=== PATIENT | female | born 1955 | race Caucasian/White ===

== ENCOUNTER 2020-09-26 15:47 | Emergency (ER) | payer SELFPAY ==
[~2020-09-26] VITALS: Ht 162.6 cm; Wt 85.7 kg
[~2020-09-26 15:47] MED LIST: ACHYD1T PO; BENA10TA PO; DCS100C PO; ESTR1TAB27 PO; IBUP800T26 PO; INDO25CA PO; INSASP10V SC; INSU100C7 SQ; INSU100V6; LOVA20TA2 PO; METF-380 PO; OMEP20CA6 PO; PARO20TA57 PO; VIT1TABL57 PO
--- NOTE | 2020-09-26 16:28 | ED Back Pain ---
General Chief Complaint: Back Problems Stated Complaint: DX W/ KIDNEY INFECTION/R FLANK PAIN Source of Information: Patient Exam Limitations: No Limitations History of Present Illness Date Seen by Provider: Sep 26, 2020 Time Seen by Provider: 16:28 Initial Comments To ER with reports of right flank pain. This has been intermittent over the past week. She was seen at [facility] and believes that she had a possible kidney infection. She states that she was not given any antibiotics but she was given nausea medication. She drank lots of water and the pain subsided. This morning the pain returned. Location: Other Timing/Duration: 2-3 Days, Intermittent Severity: Moderate Associated Symptoms: denies symptoms Allergies and Home Medications Allergies Coded Allergies: No Known Drug Allergies (Verified , 07/09/09) Home Medications Benazepril Hcl 10 Mg Tablet, 10 MG PO DAILY, (Reported) Estradiol 1 Mg Tablet, 1 MG PO DAILY Prescribed by: JANETH DAVID on 07/22/13 0735 Ibuprofen 800 Mg Tablet, 800 MG PO Q6H PRN for PAIN Use for cramping and pain Prescribed by: JANETH DAVID on 07/22/13 0735 Insulin Aspart 10 Unit/0.1 Ml Vial, 10 UNIT SC AC, (Reported) Lovastatin 20 Mg Tablet, 20 MG PO HS, (Reported) Metformin Hcl 1,000 Mg Tablet, 1,000 MG PO BID, (Reported) DAILY @ 7AM AND 5 PM Paroxetine Hcl 20 Mg Tablet, 20 MG PO DAILY, (Reported) Patient Home Medication List Home Medication List Reviewed: Yes Review of Systems Constitutional: see HPI; No chills, No fever EENTM: see HPI Respiratory: no symptoms reported Cardiovascular: no symptoms reported Genitourinary: no symptoms reported Musculoskeletal: no symptoms reported Skin: no symptoms reported Psychiatric/Neurological: No Symptoms Reported Past Vopxrnu-Qpxkpt-Uycyka Hx Immunizations Up To Date Tetanus Booster (TDap): More than 5yrs Date of Pneumonia Vaccine: Jun 28, 2012 Date of Influenza Vaccine: Apr 25, 2013 Past Medical History Reproductive Disorders: No Female Reproductive Disorders: Denies Sexually Transmitted Disease: No HIV/AIDS: No Diverticulosis Arthritis Diabetes, Insulin dep Hearing Impairment: Denies Adverse Reaction/Blood Tranf: No Family Medical History Family history: Alzheimer's disease 03 MOTHER, Onset:60 years & older Family history: Arthritis 03 FATHER, Onset:Unknown 03 MOTHER, Onset:Unknown Family history: Diabetes mellitus 03 MOTHER 09 BROTHER 09 SISTER Family history: Hypertension 03 MOTHER Prostate cancer 09 BROTHER No Family History of: Abdominal aortic aneurysm Overton's disease Alcoholism Aphasia Cancer Cancer of colon Cataract Chest pain Congenital heart disease Congestive heart failure Cystic fibrosis Dementia Dysphagia Family history: Allergy Family history: Asthma Family history: Breast disease Family history: Cardiovascular disease Family history: Coronary thrombosis Family history: Gastrointestinal disease Family history: Glaucoma Family history: Osteoporosis Family history: Thyroid disorder Headache Hearing loss Heart disease Hereditary disease History of - disorder History of - respiratory disease History of drug abuse Human immunodeficiency virus (HIV) seropositivity Hypercholesterolemia Infertile Kidney disease Malignant neoplasm of lung Myocardial infarction Parkinson's disease Psychotic disorder Seizure disorder Stroke Tuberculosis Visual impairment Physical Exam Vital Signs Capillary Refill : Height, Weight, BMI Height: 5'4" Weight: 187lbs. oz. 84.993970er; 32.09 BMI Method:Stated General Appearance: No Apparent Distress, WD/WN HEENT: PERRL/EOMI, TMs Normal Neck: Full Range of Motion, Normal Inspection Respiratory: No Accessory Muscle Use, No Respiratory Distress Gastrointestinal: Normal Bowel Sounds, Non Tender, Soft Back: CVA Tenderness (R) Extremity: Normal Capillary Refill, Normal Inspection Neurologic/Psychiatric: Alert, Oriented x3 Skin: Normal Color, Warm/Dry Progress/Results/Core Measures Results/Orders Lab Results Laboratory Tests Test 09/26/20 16:26 09/26/20 17:16 Range/Units Urine Color YELLOW Urine Clarity CLEAR Urine pH 5.5 5-9 Urine Specific [place] 1.025 H 1.016-1.022 Urine Protein 2+ H NEGATIVE Urine Glucose (UA) 1+ H NEGATIVE Urine Ketones TRACE H NEGATIVE Urine Nitrite NEGATIVE NEGATIVE Urine Bilirubin NEGATIVE NEGATIVE Urine Urobilinogen 0.2 < = 1.0 MG/DL Urine Leukocyte Esterase NEGATIVE NEGATIVE Urine RBC (Auto) 2+ H NEGATIVE Urine RBC 2-5 H /HPF Urine WBC NONE /HPF Urine Squamous Epithelial Cells 2-5 /HPF Urine Crystals NONE /LPF Urine Bacteria NEGATIVE /HPF Urine Casts PRESENT /LPF Urine Hyaline Casts 2-5 H /LPF Urine Mucus NEGATIVE /LPF Urine Culture Indicated NO White Blood Count 9.6 4.3-11.0 10^3/uL Red Blood Count 4.46 3.80-5.11 10^6/uL Hemoglobin 12.8 11.5-16.0 g/dL Hematocrit 39 35-52 % Mean Corpuscular Volume 88 80-99 fL Mean Corpuscular Hemoglobin 29 25-34 pg Mean Corpuscular Hemoglobin Concent 33 32-36 g/dL Red Cell Distribution Width 12.8 10.0-14.5 % Platelet Count 297 130-400 10^3/uL Mean Platelet Volume 9.7 9.0-12.2 fL Immature Granulocyte % (Auto) 0 % Neutrophils (%) (Auto) 77 H 42-75 % Lymphocytes (%) (Auto) 17 12-44 % Monocytes (%) (Auto) 5 0-12 % Eosinophils (%) (Auto) 1 0-10 % Basophils (%) (Auto) 0 0-10 % Neutrophils # (Auto) 7.3 1.8-7.8 10^3/uL Lymphocytes # (Auto) 1.6 1.0-4.0 10^3/uL Monocytes # (Auto) 0.5 0.0-1.0 10^3/uL Eosinophils # (Auto) 0.1 0.0-0.3 10^3/uL Basophils # (Auto) 0.0 0.0-0.1 10^3/uL Immature Granulocyte # (Auto) 0.0 0.0-0.1 10^3/uL Sodium Level 135 135-145 MMOL/L Potassium Level 4.7 3.6-5.0 MMOL/L Chloride Level 97 L 98-107 MMOL/L Carbon Dioxide Level 28 21-32 MMOL/L Anion Gap 10 5-14 MMOL/L Blood Urea Nitrogen 18 7-18 MG/DL Creatinine 0.74 0.60-1.30 MG/DL Estimat Glomerular Filtration Rate > 60 BUN/Creatinine Ratio 24 Glucose Level 261 H 70-105 MG/DL Calcium Level 9.2 8.5-10.1 MG/DL Corrected Calcium 9.1 8.5-10.1 MG/DL Total Bilirubin 0.7 0.1-1.0 MG/DL Aspartate Amino Transf (AST/SGOT) 20 5-34 U/L Alanine Aminotransferase (ALT/SGPT) 16 0-55 U/L Alkaline Phosphatase 59 40-136 U/L Total Protein 7.3 6.4-8.2 GM/DL Albumin 4.1 3.2-4.5 GM/DL My Orders Orders - JOSIAS ALEMAN APRN Cbc With Automated Diff (09/26/20 16:26) Comprehensive Metabolic Panel (09/26/20 16:26) Ct Abd/Pelvis Wo(Kidney Stone) (09/26/20 ) Departure Communication (Admissions) NAME: JOHN CARRASCO [facility] REC#: [id number] PT STATUS: REG ER : 1955 PHYSICIAN: JOSIAS ALEMAN APRN ADMIT DATE: 09/26/20/ER Draft Date of Exam:09/26/20 CT ABD/PELVIS WO(KIDNEY STONE) PROCEDURE: CT urinary tract, rule out kidney stone. TECHNIQUE: Multiple contiguous axial images were obtained through the abdomen and pelvis without the use of intravenous contrast. Auto Exposure Controls were utilized during the CT exam to meet ALARA standards for radiation dose reduction. INDICATION: Right flank pain. FINDINGS: Lung bases are clear. There is a sliding hiatal hernia. Liver appears normal. Gallbladder is surgically absent. Portal vein is not dilated. Pancreas appears normal. Spleen is not enlarged. Adrenals are normal. Kidneys appear normal. Aorta and IVC are unremarkable. Small bowel is not dilated. There is colonic diverticulosis without evidence of diverticulitis. Appendix is normal. There is no intraperitoneal free air or free fluid. Urinary bladder is normal. Uterus is surgically absent. IMPRESSION: Uncomplicated diverticulosis of the colon. Sliding hiatal hernia. No acute abnormality is seen. Dictated on workstation # [id number] Dict: 09/26/20 1747 Trans: 09/26/20 1751 [id number] Interpreted by: KEVIN MCKEON MD Electronically signed by: Impression Primary Impression: Right flank pain Disposition: 01 HOME, SELF-CARE Condition: Stable Departure-Patient Inst. Decision time for Depature: 17:56 Referrals: [facility] (PCP/Family) Primary Care Physician Patient Instructions: Flank Pain (DC) Add. Discharge Instructions: Pain medication as directed 2. Follow-up with your doctor this week. Return to ER for any worsening pain or development of fevers nausea vomiting. All discharge instructions reviewed with patient and/or family. Voiced understanding. Work/School Note: Work Release Form Date Seen in the Emergency Department: Sep 26, 2020 Return to Work: Sep 28, 2020 JOSIAS ALEMAN APRN Sep 26, 2020 16:28
[2020-09-26 16:37] LABS: BILIRUBIN,URINE NEGATIVE (NEGATIVE); CLARITY,URINE CLEAR; COLOR,URINE YELLOW; GLUCOSE, URINE (UA) 1+ (NEGATIVE); KETONES,URINE TRACE (NEGATIVE); LEUKOCYTE ESTERASE ,URINE NEGATIVE (NEGATIVE); NITRITE,URINE NEGATIVE (NEGATIVE); PH,URINE 5.5 (5-9); PROTEIN,URINE 2+ (NEGATIVE)
[2020-09-26 16:44] LABS: BACTERIA,URINE NEGATIVE /HPF
[2020-09-26 17:26] LABS: BASOPHILS % (AUTO) 0 % (0-10); EOSINOPHILS # (AUTO) 0.1 10^3/uL (0.0-0.3); EOSINOPHILS % (AUTO) 1 % (0-10); HEMATOCRIT 39 % (35-52); HEMOGLOBIN 12.8 g/dL (11.5-16.0); LYMPHOCYTES # (AUTO) 1.6 10^3/uL (1.0-4.0); LYMPHOCYTES % (AUTO) 17 % (12-44); MEAN CORPUSCULAR HEMOGLOBIN 29 pg (25-34); MEAN CORPUSCULAR HGB CONC 33 g/dL (32-36); MEAN CORPUSCULAR VOLUME 88 fL (80-99); MEAN PLATELET VOLUME 9.7 fL (9.0-12.2); MONOCYTES # (AUTO) 0.5 10^3/uL (0.0-1.0); MONOCYTES % (AUTO) 5 % (0-12); NEUTROPHILS # (AUTO) 7.3 10^3/uL (1.8-7.8); NEUTROPHILS % (AUTO) 77 % (42-75); PLATELET COUNT 297 10^3/uL (130-400); WHITE BLOOD COUNT 9.6 10^3/uL (4.3-11.0)
[2020-09-26 17:42] LABS: ALBUMIN 4.1 GM/DL (3.2-4.5); CHLORIDE 97 MMOL/L (98-107); POTASSIUM 4.7 MMOL/L (3.6-5.0); SODIUM 135 MMOL/L (135-145)
[2020-09-26 17:43] LABS: CALCIUM 9.2 MG/DL (8.5-10.1)
[2020-09-26 17:44] LABS: GLUCOSE 261 MG/DL (70-105); TOTAL PROTEIN 7.3 GM/DL (6.4-8.2)
[2020-09-26 17:45] LABS: CARBON DIOXIDE 28 MMOL/L (21-32)
[2020-09-26 17:46] LABS: BILIRUBIN,TOTAL 0.7 MG/DL (0.1-1.0)
[2020-09-26 17:47] LABS: ALKALINE PHOSPHATASE 59 U/L (40-136)
[2020-09-26 17:48] LABS: CREATININE SERUM 0.74 MG/DL (0.60-1.30); GFR ESTIMATED > 60
[2020-09-26 17:49] LABS: BUN/CREATININE RATIO 24
[2020-09-26 17:51] LABS: ALANINE AMINOTRANSFERASE 16 U/L (0-55)
--- NOTE | 2020-09-26 17:51 | Diagnostic Imaging Report ---
PROCEDURE: CT urinary tract, rule out kidney stone. TECHNIQUE: Multiple contiguous axial images were obtained through the abdomen and pelvis without the use of intravenous contrast. Auto Exposure Controls were utilized during the CT exam to meet ALARA standards for radiation dose reduction. INDICATION: Right flank pain. FINDINGS: Lung bases are clear. There is a sliding hiatal hernia. Liver appears normal. Gallbladder is surgically absent. Portal vein is not dilated. Pancreas appears normal. Spleen is not enlarged. Adrenals are normal. Kidneys appear normal. Aorta and IVC are unremarkable. Small bowel is not dilated. There is colonic diverticulosis without evidence of diverticulitis. Appendix is normal. There is no intraperitoneal free air or free fluid. Urinary bladder is normal. Uterus is surgically absent. IMPRESSION: Uncomplicated diverticulosis of the colon. Sliding hiatal hernia. No acute abnormality is seen. Dictated by: Dictated on workstation # [id number]
[2020-09-26] MEDS ORDERED: RX-HYDROCODONE/APAP 5/325 MG #4 TAB PK PO ONE (17:56)
[2020-09-26 18:14] VITALS: BP 146/95
[2020-09-26] MEDS ORDERED: RX-HYDROCODONE/APAP 5/325 MG #4 TAB PK PO PRN (18:15)
== END 2020-09-26 18:14 | disposition home or self-care (01) ==
LOC: EDUNIT# 15:47 → ER 15:48
DX: R10.9 Unspecified abdominal pain (principal); E11.9 Type 2 diabetes mellitus without complications; Z82.61 Family history of arthritis; Z82.49 Family history of ischemic heart disease and other diseases of the circulatory system; Z80.42 Family history of malignant neoplasm of prostate; Z79.4 Long term (current) use of insulin
CPT/HCPCS: 36415; 74176; 80053; 81000; 85025

== ENCOUNTER → 2021-03-04 | Outpatient (CLI) | payer MEDICARE, OTHER | LOC: CARD 12:07 | PROVIDERS: ATTEND Family Medicine | DX: I51.7 Cardiomegaly (principal); I35.1 Nonrheumatic aortic (valve) insufficiency; I35.8 Other nonrheumatic aortic valve disorders | CPT/HCPCS: 93306 ==

== ENCOUNTER → 2021-06-24 | Outpatient (CLI) | payer MEDICARE, OTHER ==
[~2021-06-24] MED LIST changes: +CATHETER FLUSH 10 ML SYR IV PRN; +REGADENOSON 0.4 MG/5 ML SYR (LEXISCAN) IV ONE
--- NOTE | 2021-06-29 16:00 | STRESS TEST ---
DATE OF SERVICE: 06/24/2021 RESTING AND POST REGADENOSON TECHNETIUM-99M TETROFOSMIN SPECT CT IMAGING ORDERING PHYSICIAN: Dr. Valiente. PRIMARY PHYSICIAN: [facility]. CLINICAL DIAGNOSIS: Baseline images were carried out after injection of 10.27 mCi of technetium-99m Tetrofosmin. This was followed by 0.4 mg of Regadenoson and 27.4 mCi of technetium-99m Tetrofosmin for stress imaging. The electrocardiogram showed sinus rhythm with nonspecific ST and T-wave abnormality at baseline. This did not change significantly with the Regadenoson infusion. Review of images at rest and following stress indicates a moderate, transient anterolateral perfusion defect. Gated images show normal global left ventricular systolic function with normal regional wall motion. Left ventricular ejection fraction is calculated to be 66%. Left ventricular end-diastolic volume is 41 mL. TID is absent (1.01). CONCLUSIONS: 1. This study is suggestive of a moderate amount of anterolateral ischemia. 2. Normal regional wall motion. 3. Normal global left ventricular systolic function with a calculated ejection fraction of 66%. Job ID: [id number] DocumentID: [id number] Dictated Date: 06/29/2021 12:37:34 Tobacco Warehouse Manager Date: 06/29/2021 15:59:52 Dictated By: LOUIE VALIENTE MD, MA, FACP, FACC,
== END ==
LOC: CARD 07:45
PROVIDERS: ATTEND Internal Medicine Cardiovascular Disease
DX: R06.09 Other forms of dyspnea (principal)
CPT/HCPCS: 78452; 93017; A9502

== ENCOUNTER 2021-07-12 08:00 | Day surgery (SDC) | payer MEDICARE, OTHER ==
[2021-07-12] VITALS (10 sets, daily range): BP systolic 123–152; BP diastolic 67–78
[~2021-07-12] VITALS: Ht 165.1 cm; Wt 85.1 kg
[2021-07-12 07:38] LABS: HEMATOCRIT 39 % (35-52); HEMOGLOBIN 12.5 g/dL (11.5-16.0); MEAN CORPUSCULAR HEMOGLOBIN 29 pg (25-34); MEAN CORPUSCULAR HGB CONC 32 g/dL (32-36); MEAN CORPUSCULAR VOLUME 92 fL (80-99); MEAN PLATELET VOLUME 10.1 fL (9.0-12.2); PLATELET COUNT 321 10^3/uL (130-400); WHITE BLOOD COUNT 8.7 10^3/uL (4.3-11.0)
[~2021-07-12 08:00] MED LIST changes: +ASPI-1238 PO; -CATHETER FLUSH 10 ML SYR IV PRN; +HEParin (CATH LAB) 2,000 ML IV ONE; +INSU100I29 SQ; +LIDOCAINE 1% INJ 20 ML 20 ML VIAL ONE; +LISI20TA26 PO; +METO50TA7 PO; +MIDAZOLAM 5 MG/5 ML (VERSED) VIAL ONE; +NS IV 1000 ML 1,000 ML IV SCH; +NS IV 1000 ML 1,000 ML ONE; +OMEP-401 PO; +PIOG45TA65 PO; +PRAV20TA3 PO; -REGADENOSON 0.4 MG/5 ML SYR (LEXISCAN) IV ONE; +fentaNYL INJ 100 MCG/2 ML AMP ONE
[2021-07-12 08:01] LABS: ALBUMIN 3.8 GM/DL (3.2-4.5); BILIRUBIN,TOTAL 0.5 MG/DL (0.1-1.0); CALCIUM 9.4 MG/DL (8.5-10.1); CREATININE SERUM 0.72 MG/DL (0.60-1.30); POTASSIUM 3.9 MMOL/L (3.6-5.0); TOTAL PROTEIN 7.3 GM/DL (6.4-8.2)
[2021-07-12 08:05] LABS: INR 0.9 (0.8-1.4); PROTHROMBIN TIME PATIENT 12.9 SEC (12.2-14.7)
--- NOTE | 2021-07-12 09:55 | Cardiac Procedure Note-CS/ASA ---
Pre-Procedure Note Pre-Op Procedure Note H&P Reviewed The H&P was reviewed, patient examined and no changes noted. Date H&P Reviewed: Jul 12, 2021 Time H&P Reviewed: 09:30 Conscious Sedation Pre-Proced Time 09:30 ASA Score 3 For ASA 3 and 4: Consider anesthesia and medical clearance. Also, for patients with a history of failed moderate sedation consider anesthesia. Airway Lungs Heart ASA score ASA 1: a normal healthy patient ASA 2: a patient with a mild systemic disease (mid diabetes, controlled hypertension, obesity ASA 3: a patient with a severe systemic disease that limits activity (angina, COPD, prior Myocardial infarction) ASA 4: a patient with an incapacitating disease that is a constant threat to life (CHF, renal failure) ASA 5: a moribund patient not expected to survive 24 hrs. (ruptured aneurysm) ASA 6: a declared brain- patient whose organs are being harvested. For emergent operations, add the letter E after the classification Mallampati Classification Grade 2 Sedation Plan Analgesia, Amnesia, Plan communicated to team members, Discussed options with patient/fam, Discussed risks with patient/fam The patient is an appropriate candidate to undergo the planned procedure, sedation, and anesthesia. The patient immediately re-assessed prior to indication. LOUIE KUMAR MD FACP FAC CCDS Jul 12, 2021 09:55
--- NOTE | 2021-07-12 09:58 | Discharge Inst-Post CATH ---
Discharge Inst-CATH/EP Post Cardiac Cath/EP D/C Inst Follow Up/Plan F/u at Dr Valiente's office in 2 weeks ACTIVITY * Go Home directly and rest. * Limit activity of the leg (or wrist if it was used) for 7 days including aerobics, swimming, jogging, bicycling, etc. * Restrict stair-climbing for 7 days if possible, if not, climb up with your non-cath leg, then bring together on the same step. * Avoid lifting, pushing, pulling or excessive movement of the affected extremity for 7 days. * Customary sexual activity may be resumed after 2 days-use caution not to use a position that strains or causes pain to the affected extremity. * No driving for 24 hours. * NO SMOKING. * Avoid straining for bowel movements for 7 days. * Gentle walking on level ground is allowed. * Returning to work will depend on the type of procedure and the results. Your doctor will discuss this with you. CALL YOUR DOCTOR FOR ANY OF THE FOLLOWING: *If bleeding from the puncture site occurs- Apply gentle pressure to site with clean cloth and call your doctor or EMS. * If a knot or lump forms under the skin, increases in size, or causes pain. * If bruising appears to be worsening or moving further down your leg instead of disappearing. * Temperature above 101 F. CARE OF YOUR GROIN INCISION; * Bruising or purple discoloration of the skin near the puncture site is common. * You may shower only, no bathtub bathing for 5 days. Be careful to avoid slipping as your leg may feel stiff. * If a closure device was used on your femoral artery, please see the attached guide regarding care of the device and your leg. * Leave dressing on FOR 24 hours. CARE OF YOUR WRIST INCISION; * Bruising or purple discoloration of the skin near the puncture site is common. * You may shower. * DO NOT submerge wrist. * Leave dressing on FOR 24 hours. LOUIE VALIENTE MD FACP FAC CCDS Jul 12, 2021 09:58
--- NOTE | 2021-07-12 09:59 | Discharge Inst-Cardiology ---
Discharge Inst-Cardiac Discharge Medications Continued Medications: Insulin Detemir (Levemir Flextouch) 100 Unit/1 Ml Insuln.pen 20 UNIT SQ AMHS, EA Lisinopril (Lisinopril) 20 Mg Tablet 20 MG PO DAILY, TAB Metoprolol Succinate (Metoprolol Succinate) 50 Mg Tab.er.24h 50 MG PO DAILY, TAB Omeprazole (Omeprazole) 20 Mg Tab.rap.dr 20 MG PO DAILY, EA Paroxetine Hcl (Paxil) 20 Mg Tablet 20 MG PO DAILY Pioglitazone HCl (Pioglitazone HCl) 45 Mg Tablet 45 MG PO DAILY, TAB Pravastatin Sodium (Pravastatin Sodium) 20 Mg Tablet 20 MG PO DAILY, TAB Discontinued Medications: Aspirin (Aspirin EC) 81 Mg Tablet.dr 81 MG PO DAILY, TAB Ibuprofen (Ibuprofen) 800 Mg Tablet 800 MG PO Q6H PRN for PAIN, #60 TAB Use for cramping and pain Metformin Hcl (Metformin 1000 Mg) 1,000 Mg Tablet 1000 MG PO BID DAILY @ 7AM AND 5 PM Patient Instructions Patient Instructions: Resume METFORMIN at previous home dose starting on the evening of 07/14/21 LOUIE KUMAR MD FACP FAC CCDS Jul 12, 2021 09:59
[2021-07-12] MEDS ORDERED: NS IV 1000 ML 1,000 ML IV SCH (10:00)
[2021-07-12] MEDS ORDERED: PATIENT MAY USE OWN MEDS, ALL PO SCH (10:00)
--- NOTE | 2021-07-12 11:13 | CARDIAC CATHETERIZATION ---
DATE OF SERVICE: 07/12/2021 CARDIAC CATHETERIZATION REPORT The patient is a 66-year-old lady with multiple coronary artery disease risk factors who recently underwent myocardial perfusion imaging study for evaluation of shortness of breath and anterolateral ischemia was demonstrated. Cardiac catheterization was carried out today after having obtained an informed consent. DESCRIPTION OF PROCEDURE: She was brought to the cardiac catheterization laboratory in a fasting state. Right groin was prepared and draped in the usual sterile fashion. Lidocaine 1% was used for local anesthesia. Modified Seldinger technique was used to advance a 5-Faroese sheath in right femoral artery, 5-Faroese JL4 catheter was used for left coronary angiography, 5-Faroese JR4 catheter for right coronary angiography, 5-Faroese pigtail catheter was used for left heart catheterization and left ventricular angiography. Angiography of the right femoral artery had been carried out through the sheath at the beginning of the procedure. At the end of the procedure, Mynx was used to achieve hemostasis. She tolerated the procedure well. HEMODYNAMICS: Left ventricular end-diastolic pressure following coronary angiography was 25 mmHg. There was no significant pressure gradient on pullback across the aortic valve. Ascending aortic pressure was 169/89 with a mean of 126 mmHg. LEFT VENTRICULAR ANGIOGRAPHY: Left ventricular angiography was carried out in the right anterior oblique projection. Global left ventricular systolic function normal. No regional wall motion abnormality is seen. Left ventricular ejection fraction of 55% to 60%. CORONARY ANGIOGRAPHY: Left main coronary artery, left anterior descending artery, left circumflex artery, right coronary artery do not exhibit any significant obstructive coronary artery disease. Right coronary artery is dominant. CONCLUSIONS: 1. No angiographically significant coronary artery disease. 2. Normal global left ventricular systolic function with an ejection fraction of 55% to 60%. 3. Elevated left ventricular end-diastolic pressure. DISCUSSION AND RECOMMENDATIONS: Based on results of the study, it appears appropriate to continue a conservative approach. She does have some diastolic dysfunction of left ventricle, probably due to hypertensive cardiovascular disease. Treatment of his hypertension is advised. Outpatient followup is advised. Job ID: [id number] DocumentID: [id number] Dictated Date: 07/12/2021 09:42:59 Imaging Technician Date: 07/12/2021 11:12:55 Dictated By: LOUIE KUMAR MD, MA, FACP, FACC,
== END 2021-07-12 13:05 | disposition home or self-care (01) ==
LOC: CATH 08:00 → SDC 10:08 → CATH 13:05
PROVIDERS: ATTEND Internal Medicine Cardiovascular Disease
DX: R06.02 Shortness of breath (principal); I11.9 Hypertensive heart disease without heart failure; E11.9 Type 2 diabetes mellitus without complications; E78.2 Mixed hyperlipidemia; I35.1 Nonrheumatic aortic (valve) insufficiency; Z79.899 Other long term (current) drug therapy; Z79.82 Long term (current) use of aspirin; Z79.4 Long term (current) use of insulin; Z79.84 Long term (current) use of oral hypoglycemic drugs
CPT/HCPCS: 80053; 80061; 85027; 85610; 85730; 87081; 93458; C1760; C1894; 36415

== ENCOUNTER 2022-05-31 05:36 | Outpatient (CLI) | payer MEDICARE, OTHER ==
[~2022-05-31] VITALS: Ht 165.1 cm; Wt 78.5 kg
[~2022-05-31 05:36] MED LIST changes: -HEParin (CATH LAB) 2,000 ML IV ONE; -LIDOCAINE 1% INJ 20 ML 20 ML VIAL ONE; -MIDAZOLAM 5 MG/5 ML (VERSED) VIAL ONE; -NS IV 1000 ML 1,000 ML IV SCH; -NS IV 1000 ML 1,000 ML ONE; -fentaNYL INJ 100 MCG/2 ML AMP ONE
[2022-06-02] MEDS ORDERED: METF-399 PO (13:16)
[2022-06-02] MEDS ORDERED: DULA1.5P2 SQ (13:16)
[2022-06-02] MEDS ORDERED: ASPI-1238 PO (13:16)
== END 2022-06-02 13:28 | disposition home or self-care (01) ==
LOC: PREOP 05:36
PROVIDERS: ATTEND Surgery
DX: Z01.818 Encounter for other preprocedural examination (principal)

== ENCOUNTER 2022-06-09 11:08 | Day surgery (SDC) | payer MEDICARE, OTHER ==
[~2022-06-09] VITALS: Ht 165 cm; Wt 78.5 kg
[~2022-06-09 11:08] MED LIST changes: +DULA1.5P2 SQ; +METF-399 PO
[2022-06-09] MEDS ORDERED: LACTATED RINGERS 1,000 ML IV STA (11:11)
[2022-06-09] MEDS ORDERED: HURRICAINE EXT TUBE (BENZOCAINE) XX PRN (11:15)
[2022-06-09] MEDS ORDERED: LACTATED RINGERS 1,000 ML IV ONE (11:30)
[2022-06-09 11:45] VITALS: BP 146/90
--- NOTE | 2022-06-09 13:02 | Progress Note-Pre Operative ---
Pre-Operative Progress Note Date of Available H&P: May 10, 2022 Date H&P Reviewed: Jun 09, 2022 Time H&P Reviewed: 13:01 History & Physical: H&P Reviewed, Patient Examed, No changes noted Pre-Operative Diagnosis: GERD, screening JESSI IRELAND DO Jun 09, 2022 13:01
[2022-06-09] MEDS ORDERED: PROPOFOL INJECTION 50 ML IV ONE (13:08)
--- NOTE | 2022-06-09 13:41 | Discharge Inst-Simple/Standard ---
Discharge Inst-Standard Patient Instructions/Follow Up Plan of Care/Instructions/FU: Follow up with Dr. Baldwin in 2 weeks Activity as Tolerated: Yes Discharge Diet: No Restrictions, Regular Diet, Other Diet (high fiber) JESSI BALDWIN DO Jun 09, 2022 13:41
[2022-06-09 13:43] VITALS: BP 120/64
[2022-06-09 13:48] VITALS: BP 117/65
[2022-06-09 13:50] VITALS: BP 117/65
[2022-06-09 14:15] VITALS: BP 129/71
[2022-06-09 14:32] VITALS: BP 129/71
--- NOTE | 2022-06-09 22:40 | OPERATIVE REPORT ---
DATE OF SERVICE: 06/09/2022 PREOPERATIVE DIAGNOSIS: GERD and screening colonoscopy. POSTOPERATIVE DIAGNOSIS: Small hiatal hernia, sigmoid colon polyp, diverticulosis. SURGEON: Jessi Baldwin DO ANESTHESIA: Per CRIME SPECIALIST. PROCEDURE: EGD with biopsies, colonoscopy with hot biopsy polypectomy x1. ESTIMATED BLOOD LOSS: Minimal. COMPLICATIONS: None. INDICATIONS: The patient is a 67-year-old female needing colonoscopy and EGD. She understands risks and benefits of procedure and wishes to proceed. Consent was signed in chart. DESCRIPTION OF PROCEDURE: The patient was taken to the endoscopy suite, placed in left lateral position. Timeout was performed. Endoscope was inserted mouth and esophagus, stomach and the duodenum without difficulty. No polyps, masses, ulcerations in the duodenum. Scope was retracted back and the stomach was further insufflated. No past menstrual ulceration in the antrum. Slight erythematous changes present, though, so took a biopsy of the antrum. Scope was retroflexed noting a small hiatal hernia. No other pathology. Scope was returned to its normal position, slowly withdrawn from distal esophagus, biopsy of the GE junction was obtained. No polyps, masses or ulcerations. Scope was then slowly retracted back until completely removed, noting no other pathology. Digital rectal exam was performed. No polyps, mass or ulceration. Scope was inserted in the rectum and advanced all the way to the cecum with minimal difficulty. Prep was adequate. Scope was slowly retracted back. No polyps, mass, ulceration of the cecum, ascending and transverse colon and sigmoid. Small polyps present, hot biopsy polypectomy was performed. Also, a moderate amount of diverticulosis present. Once in the rectum, scope was retroflexed noting just some slight hemorrhoidal disease. No other pathology. Scope was returned to its normal position and slowly withdrawn to completely remove. The patient tolerated the procedure well without complications, taken to recovery room in stable condition. RECOMMENDATIONS: The patient will need repeat colonoscopy in 5 years. Any issues before that be seen at that time. We will await biopsy results before making medication changes. We would also recommend high fiber diet due to diverticulosis. Job ID: [id number] DocumentID: [id number] Dictated Date: 06/09/2022 13:42:04 Log Chain Worker Date: 06/09/2022 22:38:00 Dictated By: JESSI BALDWIN DO
--- NOTE | 2022-06-10 09:46 | Anesthesia-General Post-Op ---
MAC Significant Intra-Op Events Notes late entry 06/08/22 @ 1530 Patient Condition Mental Status/LOC: Same as Preop Cardiovascular: Satisfactory Nausea/Vomiting: Absent Respiratory: Satisfactory Pain: Controlled Complications: Absent Post Op Complications Complications None Follow Up Care/Instructions Patient Instructions None needed. Anesthesiology Discharge Order Discharge Order Patient is doing well, no complaints, stable vital signs, no apparent adverse anesthesia problems. No complications reported per nursing. JACKSON NELSON CRNA Jun 10, 2022 09:46
== END 2022-06-09 14:32 | disposition home or self-care (01) ==
LOC: ENDO 11:08
PROVIDERS: ATTEND Surgery
DX: Z12.11 Encounter for screening for malignant neoplasm of colon (principal); K63.5 Polyp of colon; K57.30 Diverticulosis of large intestine without perforation or abscess without bleeding; K44.9 Diaphragmatic hernia without obstruction or gangrene; K64.9 Unspecified hemorrhoids; K31.89 Other diseases of stomach and duodenum; K21.00 Gastro-esophageal reflux disease with esophagitis, without bleeding; E11.9 Type 2 diabetes mellitus without complications; K29.70 Gastritis, unspecified, without bleeding; E66.9 Obesity, unspecified; Z79.4 Long term (current) use of insulin; Z79.84 Long term (current) use of oral hypoglycemic drugs; Z79.85 Long-term (current) use of injectable non-insulin antidiabetic drugs; Z68.28 Body mass index [BMI] 28.0-28.9, adult
CPT/HCPCS: 82947

== ENCOUNTER 2023-04-25 19:36 | Emergency (ER) | payer MEDICARE ==
[~2023-04-25] VITALS: Ht 165 cm; Wt 70.0 kg
[~2023-04-25 19:36] MED LIST changes: -INSU100I29 SQ; +INSU100I30 SQ
--- NOTE | 2023-04-25 19:54 | ED General ---
General Chief Complaint: Dizziness/Syncope Stated Complaint: LOW BP, DIZZINESS Source of Information: Patient, Family History of Present Illness Date Seen by Provider: Apr 25, 2023 Time Seen by Provider: 19:40 Initial Comments PT ARRIVES VIA POV FROM HOME WITH FAMILY MEMBER PT STATES SHE "JUST HASN'T FELT GOOD" FOR THE LAST FEW DAYS HAS BEEN DIZZY AND "JUST COULDN'T GET OUT OF BED" AND GENERALIZED WEAKNESS NO NAUSEA/VOMITING. SHE HAD DIARRHEA X 1 THIS AM NO CHEST PAIN NO SHORTNESS OF BREATH NO PALPITATIONS NO SYNCOPE OR FALLS NO ABDOMINAL PAIN NO HEADACHE NO VISION CHANGES NO PARESTHESIAS OR MOTOR DEFICITS NO URINARY SYMPTOMS AND VOIDING A NORMAL AMOUNT NO COUGH OR URI SYMPTOMS OR SORE THROAT NO FEVER/SWEATS/CHILLS PT HAS CONTINUED TO EAT AND DRINK NORMALLY PT IS DIABETIC, BLOOD SUGAR WAS 260 ABOUT 1 1/2 HOURS AGO BLOOD PRESSURE WAS 84/49 JUST PRIOR TONIGHT MUCH LATER INTO ER STAY, PT NOW STATES THAT SHE HAD COVID ABOUT 2 WEEKS AGO, NO TREATMENT--[facility] AT [facility], WAS FEELING BETTER UNTIL A FEW DAYS AGO PCP: [facility], DR. ECHEVARRIA Allergies and Home Medications Allergies Coded Allergies: No Known Drug Allergies (Verified , 07/09/09) Patient Home Medication List Home Medication List Reviewed: Yes Aspirin (Aspirin EC) 81 Mg Tablet.dr, 81 MG PO DAILY, (Reported) Entered as Reported by: KJ UNDERWOOD on 06/02/22 1316 Cefdinir (Cefdinir) 300 Mg Capsule, 300 MG PO BID Prescribed by: PEYTON CARTER on 04/25/232152 Dulaglutide (Trulicity) 1.5 Mg/0.5 Ml Pen.injctr, 1.5 MG SQ WEEK, (Reported) Entered as Reported by: KJ UNDERWOOD on 06/02/22 1316 Insulin Detemir (Levemir Flextouch) 100 Unit/1 Ml Insuln.pen, 20 UNIT SQ AMHS, (Reported) Entered as Reported by: ANDREW REYES on 07/12/21 0735 Lisinopril (Lisinopril) 20 Mg Tablet, 20 MG PO DAILY, (Reported) Entered as Reported by: ANDREW REYES on 07/12/21 0735 Metformin HCl (Metformin HCl) 1,000 Mg Tablet, 1,000 MG PO BID, (Reported) Entered as Reported by: KJ UNDERWOOD on 06/02/22 1316 Metoprolol Succinate (Metoprolol Succinate) 50 Mg Tab.er.24h, 50 MG PO DAILY, (Reported) Entered as Reported by: ANDREW REYES on 07/12/21 0735 Omeprazole (Omeprazole) 20 Mg Tab.rap.dr, 20 MG PO DAILY, (Reported) Entered as Reported by: ANDREW REYES on 07/12/21 0735 Paroxetine Hcl (Paxil) 20 Mg Tablet, 20 MG PO DAILY, (Reported) Entered as Reported by: SON LOWERY on 07/08/09 1805 Pioglitazone HCl (Pioglitazone HCl) 45 Mg Tablet, 45 MG PO DAILY, (Reported) Entered as Reported by: ANDREW REYES on 07/12/21 07 Pravastatin Sodium (Pravastatin Sodium) 20 Mg Tablet, 20 MG PO DAILY, (Reported) Entered as Reported by: ANDREW REYES on 07/12/21734 Review of Systems Review of Systems Constitutional: see HPI, dizziness, malaise, weakness EENTM: no symptoms reported Respiratory: no symptoms reported Cardiovascular: no symptoms reported Gastrointestinal: see HPI; No abdominal pain; diarrhea; No loss of appetite, No nausea, No vomiting Genitourinary: no symptoms reported; No decreased output Musculoskeletal: no symptoms reported Skin: no symptoms reported Psychiatric/Neurological: No Symptoms Reported Hematologic/Lymphatic: No Symptoms Reported Immunological/Allergic: no symptoms reported Past Vnspbap-Cqdotm-Earqkd Hx Patient Social History Tobacco Use?: No Substance use?: No Alcohol Use?: No Immunizations Up To Date Tetanus Booster (TDap): More than 5yrs First/Initial COVID19 Vaccinat: YES Second COVID19 Vaccination Eleazar: YES Third COVID19 Vaccination Date: NO Seasonal Allergies Seasonal Allergies: No Past Medical History Surgeries: Yes (cholecystectomy/bilateral carpal tunnel/bone spur R foot/planta fasc L foot) Section, Gallbladder, Hysterectomy, Oophorectomy, Orthopedic Respiratory: No Cardiac: Yes Hypertension Neurological: No Reproductive Disorders: No Female Reproductive Disorders: Denies Sexually Transmitted Disease: No HIV/AIDS: No Genitourinary: No Gastrointestinal: Yes Gastroesophageal Reflux, Diverticulosis Musculoskeletal: Yes (PLANTAR FASCITIS, CARPAL TUNNEL) Arthritis Endocrine: Yes (PILLS AND INSULIN) Diabetes, Insulin dep Hearing Impairment: Denies Cancer: No Psychosocial: No Integumentary: No Blood Disorders: No Adverse Reaction/Blood Tranf: No Family Medical History Family history: Alzheimer's disease 03 MOTHER, Onset:60 years & older Family history: Arthritis 03 FATHER, Onset:Unknown 03 MOTHER, Onset:Unknown Family history: Diabetes mellitus 03 MOTHER 09 BROTHER 09 SISTER Family history: Hypertension 03 MOTHER Prostate cancer 09 BROTHER No Family History of: Abdominal aortic aneurysm Ruel's disease Alcoholism Aphasia Cancer Cancer of colon Cataract Chest pain Congenital heart disease Congestive heart failure Cystic fibrosis Dementia Dysphagia Family history: Allergy Family history: Asthma Family history: Breast disease Family history: Cardiovascular disease Family history: Coronary thrombosis Family history: Gastrointestinal disease Family history: Glaucoma Family history: Osteoporosis Family history: Thyroid disorder Headache Hearing loss Heart disease Hereditary disease History of - disorder History of - respiratory disease History of drug abuse Human immunodeficiency virus (HIV) seropositivity Hypercholesterolemia Infertile Kidney disease Malignant neoplasm of lung Myocardial infarction Parkinson's disease Psychotic disorder Seizure disorder Stroke Tuberculosis Visual impairment PAST SURGICAL HISTORY: - X 2 -HYSTERECTOMY/BILATERAL SALPINGO-OOPHORECTOMY -OPEN CHOLECYSTECTOMY -BILAT CARPAL TUNNEL -BILAT FOOT SURGERY / PLANTAR FASCITIS / BONE SPURS Physical Exam Vital Signs Vital Signs - First Documented Capillary Refill : Height, Weight, BMI Height: 5'4" Weight: 187lbs. oz. 84.371464hw; 28.83 BMI Method:Stated General Appearance: No Apparent Distress, WD/WN HEENT: PERRL/EOMI, Normal ENT Inspection Neck: Normal Inspection Respiratory: Normal Breath Sounds, No Accessory Muscle Use, No Respiratory Distress Cardiovascular: Regular Rate, Rhythm, No Murmur Gastrointestinal: Non Tender, Soft Extremity: Normal Capillary Refill, Normal Inspection, Normal Range of Motion, Non Tender, No Calf Tenderness, No Pedal Edema Neurologic/Psychiatric: Alert, Oriented x3, No Motor/Sensory Deficits, Normal Mood/Affect, tea blender II-XII Norm as Tested Skin: Normal Color, Warm/Dry; No Rash Focused Exam Lactate Level 04/25/23 19:56: Lactic Acid Level 0.97 Lactic Acid Level Laboratory Tests Test 04/25/23 19:56 Lactic Acid Level 0.97 MMOL/L (0.50-2.00) Progress/Results/Core Measures Suspected Sepsis SIRS Temperature: Pulse: Respiratory Rate: Laboratory Tests 04/25/23 19:56: White Blood Count 8.5 Blood Pressure / Mean: 04/25/23 19:56: Lactic Acid Level 0.97 Laboratory Tests 04/25/23 19:56: Creatinine 1.65H, INR Comment 0.9, Platelet Count 297, Total Bilirubin 0.6 Results/Orders Lab Results Laboratory Tests Test 04/25/23 19:55 04/25/23 19:56 04/25/23 20:25 04/25/23 20:32 Range/Units Glucometer 274 H 70-110 MG/DL White Blood Count 8.5 4.3-11.0 10^3/uL Red Blood Count 4.19 3.80-5.11 10^6/uL Hemoglobin 11.8 11.5-16.0 g/dL Hematocrit 37 35-52 % Mean Corpuscular Volume 89 80-99 fL Mean Corpuscular Hemoglobin 28 25-34 pg Mean Corpuscular Hemoglobin Concent 32 32-36 g/dL Red Cell Distribution Width 13.1 10.0-14.5 % Platelet Count 297 130-400 10^3/uL Mean Platelet Volume 10.2 9.0-12.2 fL Immature Granulocyte % (Auto) 0 % Neutrophils (%) (Auto) 59 42-75 % Lymphocytes (%) (Auto) 31 12-44 % Monocytes (%) (Auto) 7 0-12 % Eosinophils (%) (Auto) 3 0-10 % Basophils (%) (Auto) 1 0-10 % Neutrophils # (Auto) 5.0 1.8-7.8 10^3/uL Lymphocytes # (Auto) 2.6 1.0-4.0 10^3/uL Monocytes # (Auto) 0.6 0.0-1.0 10^3/uL Eosinophils # (Auto) 0.2 0.0-0.3 10^3/uL Basophils # (Auto) 0.1 0.0-0.1 10^3/uL Immature Granulocyte # (Auto) 0.0 0.0-0.1 10^3/uL Erythrocyte Sedimentation Rate 25 0-30 MM/HR Prothrombin Time 12.7 12.2-14.7 SEC INR Comment 0.9 0.8-1.4 Activated Partial Thromboplast Time 26 24-35 SEC D-Dimer 0.34 0.00-0.49 UG/ML Sodium Level 133 L 135-145 MMOL/L Potassium Level 5.0 3.6-5.0 MMOL/L Chloride Level 99 98-107 MMOL/L Carbon Dioxide Level 22 21-32 MMOL/L Anion Gap 12 5-14 MMOL/L Blood Urea Nitrogen 38 H 7-18 MG/DL Creatinine 1.65 H 0.60-1.30 MG/DL Estimat Glomerular Filtration Rate 34 BUN/Creatinine Ratio 23 Glucose Level 285 H 70-105 MG/DL Lactic Acid Level 0.97 0.50-2.00 MMOL/L Calcium Level 9.1 8.5-10.1 MG/DL Corrected Calcium 9.3 8.5-10.1 MG/DL Magnesium Level 1.6 1.6-2.4 MG/DL Total Bilirubin 0.6 0.1-1.0 MG/DL Aspartate Amino Transf (AST/SGOT) 14 5-34 U/L Alanine Aminotransferase (ALT/SGPT) 11 0-55 U/L Alkaline Phosphatase 69 40-136 U/L Total Creatine Kinase 48 29-168 U/L Creatine Kinase MB 0.9 <6.6 NG/ML Myoglobin 33.2 10.0-92.0 NG/ML Troponin I < 0.028 <0.028 NG/ML C-Reactive Protein High Sensitivity 0.09 0.00-0.50 MG/DL B-Type Natriuretic Peptide 40.6 <100.0 PG/ML Total Protein 7.2 6.4-8.2 GM/DL Albumin 3.8 3.2-4.5 GM/DL Amylase Level 66 25-125 U/L Lipase 46 8-78 U/L Beta-Hydroxybutyrate (Chem panel) 0.05 0.00-0.27 MMOL/L TSH [place] Testing 1.36 0.35-4.94 UIU/ML Influenza Type A (RT-PCR) Not Detected Not Detecte Influenza Type B (RT-PCR) Not Detected Not Detecte SARS-CoV-2 RNA (RT-PCR) Detected H Not Detecte Urine Color YELLOW Urine Clarity CLEAR Urine pH 5.0 5-9 Urine Specific [place] >=1.030 1.016-1.022 Urine Protein 1+ H NEGATIVE Urine Glucose (UA) NEGATIVE NEGATIVE Urine Ketones 1+ H NEGATIVE Urine Nitrite NEGATIVE NEGATIVE Urine Bilirubin 2+ H NEGATIVE Urine Urobilinogen 0.2 < = 1.0 MG/DL Urine Leukocyte Esterase 1+ H NEGATIVE Urine RBC (Auto) NEGATIVE NEGATIVE Urine RBC NONE /HPF Urine WBC 10-25 H /HPF Urine Squamous Epithelial Cells 10-25 H /HPF Urine Crystals NONE /LPF Urine Bacteria FEW H /HPF Urine Casts PRESENT /LPF Urine Hyaline Casts 25-50 H /LPF Urine Mucus NEGATIVE /LPF Urine Yeast FEW H /HPF Urine Culture Indicated YES My Orders Orders - PEYTON CARTER DO Orthostatic Vital Signs (Adult (04/25/23 19:40) Ua Culture If Indicated (04/25/23 19:40) Amylase (04/25/23 19:40) Bnp [place] (04/25/23 19:40) Cbc And Automated Diff (04/25/23 19:40) Comprehensive Metabolic Panel (04/25/23 19:40) Creatine Kinase (04/25/23 19:40) Creatine Kinase Mb (04/25/23 19:40) Hs C Reactive Protein (04/25/23 19:40) Fibrin Degradation Products (04/25/23 19:40) Lactic Acid Analyzer (04/25/23 19:40) Lipase (04/25/23 19:40) Magnesium (04/25/23 19:40) Protime With Inr (04/25/23 19:40) Partial Thromboplastin Time (04/25/23 19:40) Thyroid Analyzer (04/25/23 19:40) Erythrocyte Sedimentation Rate (04/25/23 19:40) Troponin I [place] (04/25/23 19:40) Covid 19 Inhouse Test (04/25/23 19:40) Myoglobin Serum (04/25/23 19:40) Influenza A And B By Pcr (04/25/23 19:40) Ed Iv/Invasive Line Start (04/25/23 19:40) Ekg Tracing (04/25/23 19:40) O2 (04/25/23 19:40) Monitor-Rhythm Ecg Trace Only (04/25/23 19:40) Chest 1 View, Ap/Pa Only (04/25/23 19:40) Accucheck Stat ONCE (04/25/23 19:47) Ed Iv/Invasive Line Start (04/25/23 20:25) Ns Iv 1000 Ml (Ns Iv 1000 Ml) (04/25/23 20:30) Beta Hydroxybutyrate (04/25/23 20:25) Hemoglobin A1c (04/25/23 20:25) Urine Culture (04/25/23 20:25) Ed Iv/Invasive Line Start (04/25/23 20:55) Ns Iv 1000 Ml (Ns Iv 1000 Ml) (04/25/23 21:00) Ceftriaxone Iv/Im (Ceftriaxone Iv/Im) (04/25/23 20:55) Vital Signs/I&O 04/25/23 04/25/23 04/25/23 04/25/23 20:00 20:00 20:23 20:24 Temp 36.3 Pulse 84 70 79 Resp 19 B/P (MAP) 136/60 112/65 (81) 90/60 (70) Pulse Ox 98 98 O2 Delivery Room Air Room Air Capillary Refill : Progress Note : Progress Note PLACED IN ISOLATION ROOM PPE WORN VITALS ON ARRIVAL: TEMP 36.3=97.4, HR 84, R 19, BP 136/60, O2 SAT 98% ON ROOM AIR ORTHOSTATIC VITALS POSTIVE, WITH DROP IN BP AND INCREASE IN HR. GIVEN: -IV FLUIDS -ROCEPHIN FOR UTI LABS: -CBC NORMAL -CMP WITH NA 133, BUN 38, CR 1.65, GLU 285 -MG NORMAL -TROPONIN NEGATIVE -BNP NORMAL -PT/PTT/INR NORMAL -D-DIMER NEGATIVE -SED RATE 25 -CRP .09 -BETA HYDROXYBUTYRATE 0.05 -LACTIC ACID 0.97 -UA WITH 1+ PROTEIN, 1+ KETONES, 1+ LEUKOCYTES, 10-25 WBC, FEW BACTERIA COVID TEST IS POSITIVE. PT LATER REPORTS THAT SHE HAD COVID 2 WEEKS AGO--NO TREATMENT. SEEN AT [facility] EKG UNREMARKABLE CXR UNREMARKABLE BP UP TO 130'S/70'S AND HR DOWN TO 60'S AT TIME OF DISMISSAL. DISCUSSED TEST RESULTS, ANTICIPATED COURSE, SYMPTOMATIC TREATMENT, MEDICATIONS, NEED FOR FOLLOW UP AND RETURN PRECAUTIONS. REVIEWED PRIOR RECORDS INCLUDING ER VISITS, ADMITS/H&P'S/CONSULTS/DISCHARGE SUMMARIES, TESTS/PROCEDURES ECG Initial ECG Impression Date: Apr 25, 2023 Initial ECG Impression Time: 19:58 Initial ECG Rate: 62 Initial ECG Rhythm: Normal Sinus Initial ECG Intervals: Normal Initial ECG Impression: Normal Comment INTERPRETED BY ME Diagnostic Imaging Comments CXR--PER RADIOLOGIST REPORT AT 2034 Findings: No focal airspace disease in the visualized lungs. No pleural effusion or pneumothorax. Normal cardiomediastinal silhouette. Impression: 1. No acute cardiopulmonary process by portable radiography. Reviewed: Reviewed by Me Departure Impression Primary Impression: RECENT COVID 19 VIRUS INFECTION Additional Impressions: Dehydration Acute renal insufficiency Hyperglycemia due to diabetes mellitus UTI (urinary tract infection) Disposition: HOME, SELF-CARE Condition: Improved Departure-Patient Inst. Decision time for Depature: 21:50 Referrals: [facility] (PCP/Family) Primary Care Physician Patient Instructions: COVID-19 ED, Dehydration, Adult ED, Sick Day Management for Diabetics, Urinary Tract Infection, Adult (DC), Urinary tract infections in adults Add. Discharge Instructions: HOME, REST CONTINUE YOUR REGULAR MEDICATIONS PRESCRIBED INCREASE YOUR FLUID INTAKE, SO YOU ARE URINATING EVERY 2-3 HOURS WHILE AWAKE FOLLOW UP WITH YOUR DR IN 2-3 DAYS FOR FURTHER CARE, RETURN TO ER IF SYMPTOMS WORSEN All discharge instructions reviewed with patient and/or family. Voiced understanding. Scripts Cefdinir (Cefdinir) 300 Mg Capsule 300 MG PO BID, #20 CAP Prov: PEYTON CARTER DO 04/25/23 PEYTON CARTER DO Apr 25, 2023 19:54
[2023-04-25 20:02] LABS: BASOPHILS # (AUTO) 0.1 10^3/uL (0.0-0.1); BASOPHILS % (AUTO) 1 % (0-10); EOSINOPHILS # (AUTO) 0.2 10^3/uL (0.0-0.3); EOSINOPHILS % (AUTO) 3 % (0-10); HEMATOCRIT 37 % (35-52); HEMOGLOBIN 11.8 g/dL (11.5-16.0); LYMPHOCYTES # (AUTO) 2.6 10^3/uL (1.0-4.0); LYMPHOCYTES % (AUTO) 31 % (12-44); MEAN CORPUSCULAR HEMOGLOBIN 28 pg (25-34); MEAN CORPUSCULAR HGB CONC 32 g/dL (32-36); MEAN CORPUSCULAR VOLUME 89 fL (80-99); MEAN PLATELET VOLUME 10.2 fL (9.0-12.2); MONOCYTES # (AUTO) 0.6 10^3/uL (0.0-1.0); MONOCYTES % (AUTO) 7 % (0-12); NEUTROPHILS % (AUTO) 59 % (42-75); PLATELET COUNT 297 10^3/uL (130-400); WHITE BLOOD COUNT 8.5 10^3/uL (4.3-11.0)
[2023-04-25 20:12] LABS: ALBUMIN 3.8 GM/DL (3.2-4.5); CHLORIDE 99 MMOL/L (98-107); SODIUM 133 MMOL/L (135-145)
[2023-04-25 20:13] LABS: AMYLASE 66 U/L (25-125); CALCIUM 9.1 MG/DL (8.5-10.1)
[2023-04-25 20:14] LABS: GLUCOSE 285 MG/DL (70-105); INR 0.9 (0.8-1.4); PROTHROMBIN TIME PATIENT 12.7 SEC (12.2-14.7); TOTAL PROTEIN 7.2 GM/DL (6.4-8.2)
[2023-04-25 20:15] LABS: CARBON DIOXIDE 22 MMOL/L (21-32)
[2023-04-25 20:16] LABS: BILIRUBIN,TOTAL 0.6 MG/DL (0.1-1.0)
[2023-04-25 20:18] LABS: ALKALINE PHOSPHATASE 69 U/L (40-136); CREATININE SERUM 1.65 MG/DL (0.60-1.30); GFR ESTIMATED 34
[2023-04-25 20:19] LABS: BUN/CREATININE RATIO 23
[2023-04-25 20:21] LABS: ALANINE AMINOTRANSFERASE 11 U/L (0-55); MAGNESIUM 1.6 MG/DL (1.6-2.4)
[2023-04-25 20:22] LABS: CREATINE KINASE 48 U/L (29-168); LIPASE 46 U/L (8-78)
[2023-04-25 20:23] VITALS: BP 112/65
[2023-04-25 20:24] VITALS: BP 90/60
[2023-04-25 20:24] LABS: ERYTHROCYTE SEDIMENTATION RATE 25 MM/HR (0-30)
[2023-04-25 20:29] LABS: CREATINE KINASE MB 0.9 NG/ML (<6.6)
[2023-04-25] MEDS ORDERED: NS IV 1000 ML 1,000 ML IV SCH ×2 (20:30→21:00)
--- NOTE | 2023-04-25 20:33 | Diagnostic Imaging Report ---
CHEST 1 VIEW, AP/PA ONLY Indication: Dizziness Comparison: 10/08/2015 Findings: No focal airspace disease in the visualized lungs. No pleural effusion or pneumothorax. Normal cardiomediastinal silhouette. Impression: 1. No acute cardiopulmonary process by portable radiography. Dictated by: Dictated on workstation # [id number]
[2023-04-25 20:41] LABS: TSH (THYROID ANALYZER) 1.36 UIU/ML (0.35-4.94)
[2023-04-25 20:51] LABS: CLARITY,URINE CLEAR; COLOR,URINE YELLOW; GLUCOSE, URINE (UA) NEGATIVE (NEGATIVE); KETONES,URINE 1+ (NEGATIVE); NITRITE,URINE NEGATIVE (NEGATIVE); PROTEIN,URINE 1+ (NEGATIVE)
[2023-04-25 20:52] LABS: BACTERIA,URINE FEW /HPF; BILIRUBIN,URINE 2+ (NEGATIVE); HYALINE CASTS, URINE 25-50 /LPF; LEUKOCYTE ESTERASE ,URINE 1+ (NEGATIVE); YEAST,URINE FEW /HPF
[2023-04-25] MEDS ORDERED: cefTRIAXone IV/IM 1,000 MG in NS (IVPB) 50 ML 50 ML IV STA (20:55)
[2023-04-25 20:56] LABS: FIBRIN DEGRADATION PRODUCTS 0.34 UG/ML (0.00-0.49)
[2023-04-25] MEDS ORDERED: CEFD300C3 PO (21:53)
[2023-04-25 22:14] VITALS: BP 147/75
== END 2023-04-25 22:17 | disposition home or self-care (01) ==
LOC: EDUNIT# 19:36 → ER 19:40
DX: U07.1 COVID-19 (principal); R53.1 Weakness; R42 Dizziness and giddiness; E86.0 Dehydration; N39.0 Urinary tract infection, site not specified; N17.9 Acute kidney failure, unspecified; E11.65 Type 2 diabetes mellitus with hyperglycemia; Z86.16 Personal history of COVID-19; Z79.4 Long term (current) use of insulin
CPT/HCPCS: 36415; 71045; 80053; 81000; 82010; 82150; 82550; 82553; 82947; 83036; 83605; 83690; 83735; 83874; 83880; 84443; 84484; 85025; 85379; 85610; 85652; 85730; 86141; 87088; 87636; 93005; 93041

== ENCOUNTER → 2023-05-22 | Outpatient (CLI) | payer MEDICARE ==
[~2023-05-22] MED LIST changes: +CEFD300C3 PO
--- NOTE | 2023-05-22 13:46 | Diagnostic Imaging Report ---
INDICATION: 68-year-old, asymptomatic post menopausal female, COMPARISON: 03/30/2009 FINDINGS: AP Spine L1-L4: [BMD (g/cm2): 1.109] [T-Score: -0.8] [Z-Score: 0.3] [BMD Previous: 1.147] [BMD % Change: -3.3*] LT Hip Neck: [BMD (g/cm2): 0.933] [T-Score: -0.3] [Z-Score: 0.9] LT Hip Total: [BMD (g/cm2):1.078] [T-Score:0.6] [Z-Score: 1.5] [BMD Previous: 1.117] [BMD % Change: -3.5*] RT Hip Neck: [BMD (g/cm2):0.980] [T-Score:-0.4] [Z-Score:0.8] RT Hip Total: [BMD (g/cm2):1.072] [T-score:0.5] [Z-Score:1.4] [BMD Previous:1.089] [BMD % Change:-1.6] *Indicates significant change from prior examination based on 95% confidence level. World Health Organization criteria for BMD interpretation classify patients as Normal (T-score at or above -1.0), Osteopenic (T-score between -1.0 and -2.5) or Osteoporotic (T-score at or below -2.5). LIMITATIONS AND MODIFICATION: None. FRACTURE RISK (FRAX SCORE): The ten year probability of (%): Major Osteoporotic Fracture: [na] Hip Fracture: [na] IMPRESSION: 1. Normal bone mineral density. 2. Bone mineral density has decreased by a statistically significant amount, as detailed above. 3. See below National Osteoporosis Foundation guidelines on when to potentially initiate pharmacologic therapy. Based on the National Osteoporosis Foundation Guidelines, pharmacologic treatment should be initiated in any of the following, unless clinical conditions suggest otherwise: * Any patient with prior fragility fracture of the hip or vertebrae. A spine fracture indicates 5X risk for subsequent spine fracture and 2X risk for subsequent hip fracture. * Osteoporosis (T-score <-2.5). * Postmenopausal women and men age 50 and older with low bone mass/osteopenia (T-score between -1.0 and -2.5) by DXA and 10-year major osteoporotic fracture greater than 20% or a 10-year probability of hip fracture greater than 3%. These fracture risks are supplied above in the FRAX score, if applicable. * Clinician judgement and/or patient preferences may indicate treatment for people with 10-year fracture probabilities above or below these levels. Dictated by: Dictated on workstation # [id number]
== END ==
LOC: RAD 09:49
PROVIDERS: ATTEND Family Medicine
DX: Z78.0 Asymptomatic menopausal state (principal)
CPT/HCPCS: 77080